=== PATIENT | male | born 1990 | race Caucasian/White ===

== ENCOUNTER 2017-07-03 12:29 | Emergency (ER) | payer SELFPAY ==
[2017-07-03 12:36] VITALS: BP 128/66
--- NOTE | 2017-07-03 13:08 | RAD ---
Indication: Right thumb injury. 3 views of the right thumb demonstrates no fracture. Early degenerative changes of the first metacarpal phalangeal joint is noted. IMPRESSION: No fracture is identified. Degenerative changes of the first metacarpal phalangeal joint.
--- NOTE | 2017-07-24 16:39 | ED ---
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 He states he has injured this thumb before and feels that he may have hyperextended it. Denies any numbness or tingling in the thumb, but endorses some ecchymosis over the MCP joint. Full range of motion, but with pain. Pain is worse with abduction. Denies any pain in the wrist or the fingertips. He also notes to a left groin strain. Pain is not worse on palpation, but is worse with specific movements. He denies any history of hernias or other strains of the groin. Denies any difficulty with urination or other complaints at this time. Patient is otherwise healthy and takes no medications. He has not been using [id number] medications or ice for relief. - History of Current Complaint Chief Complaint: EDExtremityUpper Stated Complaint: RIGHT THUMB PAIN Time Seen by Provider: 07/03/17 12:37 Hx Obtained From: Patient Mechanism Of Injury: Twisted Onset/Duration: Started Days Ago Timing: Constant Severity Initially: Moderate Severity Currently: Moderate Pain Location: Other: - Right thumb and left groin Aggravating Factor(s): Movement, Internal/External Rotation Alleviating Factor(s): Rest, Ice Associated Signs & Symptoms: Positive: Bruising - Right MCP joint, but with full range of motion. Negative: Swelling, Redness Related History: Occupational Injury, Dominant Hand Right - Risk Factors Non-Orthopedic Risk Factor: Negative DVT Risk Factors: Negative Septic Arthritis Risk Factor: Negative Compartment Syndrome Risk Factors: Pain - Allergies/Home Medications Allergies/Adverse Reactions: Allergies Allergy/AdvReac Type Severity Reaction Status Date / Time No Known Allergies Allergy Verified 11/06/14 18:58 PMH/Surg Hx/FS Hx/Imm Hx Previously Healthy: Yes Endocrine/Hematology History: Denies: Hx Diabetes, Hx Thyroid Disease Cardiovascular History: Denies: Hx Hypertension Respiratory History: Denies: Hx Asthma, Hx Chronic Obstructive Pulmonary Disease (COPD) GI History: Denies: Hx Ulcer - Immunization History Hx Pertussis Vaccination: No Immunizations Up to Date: Unable to Obtain/Confirm Infectious Disease History: No Infectious Disease History: Denies: Hx Clostridium Difficile, Hx Hepatitis, Hx Human Immunodeficiency Virus (HIV), Hx of Known/Suspected MRSA, Hx Shingles, Hx Tuberculosis, Hx Known/ Suspected VRE, Hx Known/Suspected VRSA, History Other Infectious Disease, Traveled Outside the [place] in Last 30 Days - Social History Occupation: Employed Full-time Lives: With Family Alcohol Use: Occasionally Alcohol Amount: few drinks Hx Substance Use: Yes Substance Use Type: Reports: Marijuana Hx Tobacco Use: No Smoking Status (MU): Never Smoked Tobacco Type: Cigarettes Review of Systems Constitutional: Negative Negative: Fever, Chills, Fatigue, Skin Diaphoresis ENT: Negative Respiratory: Negative Negative: Shortness Of Breath, Cough Negative: Abdominal Pain, Vomiting, Diarrhea, Nausea Genitourinary: Negative Positive: no symptoms reported, see HPI Positive: Myalgia - right thumb and left groin pain Skin: Negative All Other Systems Reviewed And Are Negative: Yes Physical Exam Triage Information Reviewed: Yes Vital Signs On Initial Exam: Initial Vitals Temp Pulse Resp BP Pulse Ox 97.7 F 75 18 128/66 99 07/03/17 12:31 18 12:31 07/03/17 12:31 07/03/17 12:31 07/03/17 12:31 Vital Signs Reviewed: Yes Appearance: Positive: Well-Appearing, Well-Nourished Skin: Positive: Warm, Skin Color Reflects Adequate Perfusion, Other - Ecchymosis to the MCP joint of the right thumb Head/Face: Positive: Normal Head/Face Inspection Eyes: Positive: EOMI, BERENICE, Conjunctiva Clear Neck: Positive: Supple, Nontender, No Lymphadenopathy Respiratory/Lung Sounds: Positive: Clear to Auscultation, Breath Sounds Present Cardiovascular: Positive: RRR, Pulses are Symmetrical in both Upper and Lower Extremities Musculoskeletal: Positive: Pain @ - Left groin pain not worse with deep palpation and without palpable nodule or hernia Neurological: Positive: Sensory/Motor Intact, Alert, Oriented to Person Place, Time Psychiatric: Positive: Affect/Mood Appropriate AVPU Assessment: Alert Diagnostics - Vital Signs Vital Signs Temp Pulse Resp BP Pulse Ox 07/03/17 12:31 97.7 F 75 18 128/66 99 - Laboratory Lab Statement: Any lab studies that have been ordered have been reviewed, and results considered in the medical decision making process. 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 He also notes to left groin pain which has been present for 2 weeks. There is no palpable nodule, discoloration or hernia present. He is to follow-up with physical therapy or his PCP for further evaluation. X-ray of the right thumb obtained and negative for any fractures, but shows degenerative disc disease. He is instructed to apply moist heat to the area. He is also instructed to apply ice to the thumb and continue range of motion of the thumb to prevent stiffness. Encouraged ibuprofen 600 mg 3 times daily. Patient wishes no concerns at this time and is okay for discharge. - Diagnoses Provider Diagnoses: Pain of right thumb Discharge - Discharge Plan Condition: Stable Disposition: HOME Patient Education Materials: Groin Strain (ED) Forms: *Work Release Referrals: Carlos Yip MD [Medical Doctor] - 3 Days No Primary Care Phys,NOPCP [Primary Care Provider] - Additional Instructions: Please follow up with Dr. Yip next week I have taken you out of work for 3 days Moist heat to the area of the groin Ice to the thumb Ibuprofen 600mg three times daily for pain
== END 2017-07-03 14:38 | disposition home or self-care (01) ==
LOC: ED 12:29
DX: M79.644 Pain in right finger(s) (principal)
CPT/HCPCS: 99281

== ENCOUNTER 2018-06-27 18:16 | Emergency (ER) | payer OTHER ==
--- NOTE | 2018-06-27 18:35 | ED ---
Substance Abuse/Use - HPI Summary HPI Summary: Patient is a 28 y/o M presenting to ED with law enforcement for legal blood draw. Patient states that he was pulled over, officer reported that the patient' s vehicle smelled of marijuana. He states that a marijuana stem was found in his car. Roadside tests were administered, patient was told that he appeared impaired and that examination of his septum suggested cocaine usage. Patient was subsequently brought to ED for legal blood draw. In the room, he has no medical complaints other than feeling "a bit anxious". Patient notes that he smoked marijuana last night. He reports PMHx of spinal stenosis. He states that he is not on any home medications, no allergies reported. No PSHx, he denies PMHx of HTN, asthma, diabetes, thyroid problems. FMHx of CA is reported. On triage, pain is denied, nothing is noted to aggravate/alleviate Sx. Home medications and allergies are reviewed. - History Of Current Complaint Chief Complaint: EDGeneral Stated Complaint: LEGAL BLOOD DRAW Hx Obtained From: Patient Onset/Duration of Drug/ETOH Abuse: Days - last night Ingestion History: Type/Name Of Drug - marijuana Overdose Characteristics: Inhalation - marijuana Severity Currently: None - no pain reported Character: Anxious Aggravating Factor(s): Nothing Alleviating Factor(s): Nothing Associated Signs And Symptoms: Negative - Allergies/Home Medications Allergies/Adverse Reactions: Allergies Allergy/AdvReac Type Severity Reaction Status Date / Time No Known Allergies Allergy Verified 11/06/14 18:58 PMH/Surg Hx/FS Hx/Imm Hx Endocrine/Hematology History: Denies: Hx Diabetes, Hx Thyroid Disease Cardiovascular History: Denies: Hx Hypertension Respiratory History: Denies: Hx Asthma, Hx Chronic Obstructive Pulmonary Disease (COPD) GI History: Denies: Hx Ulcer - Surgical History Surgery Procedure, Year, and Place: none Infectious Disease History: No Infectious Disease History: Denies: Hx Clostridium Difficile, Hx Hepatitis, Hx Human Immunodeficiency Virus (HIV), Hx of Known/Suspected MRSA, Hx Shingles, Hx Tuberculosis, Hx Known/ Suspected VRE, Hx Known/Suspected VRSA, History Other Infectious Disease, Traveled Outside the [place] in Last 30 Days - Family History Known Family History: Positive: Other - FMHx of [place] - Social History Alcohol Use: Occasionally Alcohol Amount: few drinks Substance Use Type: Reports: Marijuana Smoking Status (MU): Never Smoked Tobacco Type: Cigarettes Review of Systems Positive: Other - LEGAL BLOOD DRAW. Negative: Fever Positive: Anxious All Other Systems Reviewed And Are Negative: Yes Physical Exam - Summary Physical Exam Summary: Appearance: Well-appearing, no pain distress, well-nourished; patient is calm, cooperative, but states he is anxious Skin: Warm, color reflects adequate perfusion, dry Head: Normal Head/Face inspection, atraumatic Eyes: Conjunctiva clear, pupils are 3 mm equal and reactive, EOMI ENT: nose is erythematous, turbinates bilaterally, small area of white mucus and dried blood at right septum. No hematoma or ulcer of septum. Neck: Supple, no nodes, no JVD Respiratory: Lungs clear, normal breath sounds, no respiratory distress Cardio: RRR, No murmur, pulses normal, brisk capillary refill Abdomen: Soft, nontender Bowel sounds: Present Musculoskeletal: Strength Intact/ROM intact, no calf tenderness, no edema. Psychological: Normal Neuro: Alert, muscle tone normal, no focal deficit Triage Information Reviewed: Yes Vital Signs On Initial Exam: Initial Vitals Temp Pulse Resp BP Pulse Ox 98.6 F 89 18 157/76 99 06/27/18 18:23 06/27/18 18:23 06/27/18 18:23 06/27/18 18:23 06/27/18 18:23 Vital Signs Reviewed: Yes Diagnostics - Vital Signs Vital Signs Temp Pulse Resp BP Pulse Ox 06/27/18 18:23 98.6 F 89 18 157/76 99 - Laboratory Lab Statement: Any lab studies that have been ordered have been reviewed, and results considered in the medical decision making process. Course/Dx - Course Course Of Treatment: Patient is a 28 y/o M presenting to ED with law enforcement for legal blood draw. Patient states that he was pulled over, officer reported that the patient's vehicle smelled of marijuana. He states that a marijuana stem was found in his car. Roadside tests were administered, patient was told that he appeared impaired and that examination of his septum suggested cocaine usage. Patient was subsequently brought to ED for legal blood draw. In the room, he has no medical complaints other than feeling "a bit anxious". Patient notes that he smoked marijuana last night. He reports PMHx of spinal stenosis. He states that he is not on any home medications, no allergies reported. No PSHx, he denies PMHx of HTN, asthma, diabetes, thyroid problems. FMHx of CA is reported. On physical exam, patient is well-appearing, no pain distress, well-nourished; patient is calm, cooperative, but states he is anxious. Conjunctiva clear, pupils are 3 mm equal and reactive, EOMI. Nose is erythematous, turbinates bilaterally, small area of white mucus and dried blood at right septum. No hematoma or ulcer of septum. Blood sample was obtained from patient, he was discharged afterwards. - Diagnoses Provider Diagnoses: Encounter for blood test Discharge - Sign-Out/Discharge Documenting (check all that apply): Patient Departure - discharge - Discharge Plan Condition: Stable Disposition: HOME Patient Education Materials: Normal Exam (ED) Referrals: [facility] [Outside] - If Needed [facility]FERRAL [Outside] - If Needed Additional Instructions: Return to the ER if any new or worsening symptoms. - Attestation Statements Document Initiated by Scribe: Yes Documenting Scribe: DANIELLE COSTA Provider For Whom Scribe is Documenting (Include Credential): JACKLYN PAREKH MD Scribe Attestation: DANIELLE Small , scribed for JACKLYN PAREKH MD on 06/27/18 at 1919. Status of Scribe Document: Ready
[2018-06-27 19:03] VITALS: BP 00/00
== END 2018-06-27 19:02 | disposition home or self-care (01) ==
LOC: ED 18:16
DX: Z04.89 Encounter for examination and observation for other specified reasons (principal); F41.9 Anxiety disorder, unspecified
CPT/HCPCS: 99282

== ENCOUNTER 2018-07-22 09:09 | Emergency (ER) | payer OTHER ==
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
[2018-07-22 10:49] VITALS: BP 130/79
== END 2018-07-22 10:48 | disposition home or self-care (01) ==
LOC: ED 09:09
DX: S43.401A Unspecified sprain of right shoulder joint, initial encounter (principal); X58.XXXA Exposure to other specified factors, initial encounter; Y92.159 Unspecified place in reform school as the place of occurrence of the external cause; Y99.0 Civilian activity done for income or pay
CPT/HCPCS: 99282

== ENCOUNTER 2019-04-02 18:17 | Emergency (ER) | payer BC ==
[2019-04-02 18:39] VITALS: BP 123/79
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
== END 2019-04-02 19:37 | disposition home or self-care (01) ==
LOC: UCEAST 18:17
DX: S06.0X0A Concussion without loss of consciousness, initial encounter (principal); S00.33XA Contusion of nose, initial encounter; W50.0XXA Accidental hit or strike by another person, initial encounter; Y93.67 Activity, basketball; Y92.9 Unspecified place or not applicable
CPT/HCPCS: 70160; 99211; G0463

== ENCOUNTER 2019-09-20 14:39 | Emergency (ER) | payer BC, OTHER ==
--- NOTE | 2019-09-20 15:01 | UC ---
Eye Complaint HPI - HPI Summary HPI Summary: 29 yo with 3 day history of crusting eye discharge, awakening with lightly colored eye matter. No visual change or photophobia associated. No allergy symptoms, but his workplace has been disinfecting regularly and he wonders about irritation secondary to cleaning products. His mom recently tested negative for COVID. - History of Current Complaint Chief Complaint: UCEye Stated Complaint: EYE ISSUE Time Seen by Provider: 09/20/19 14:48 Hx Obtained From: Patient Onset/Duration: Gradual Onset, Lasting Days Timing: Constant Severity Initially: Mild Severity Currently: Mild Pain Intensity: 0 Location of Injury: Conjunctiva Aggravating Factor(s): Nothing Alleviating Factor(s): Other - compressing helps a little. Associated Signs And Symptoms: Positive: Drainage (Purulent) - Risk Factors Penetrating Injury Risk Factor: Negative Globe Rupture Risk Factors: Negative Acute Glaucoma Risk Factors: Negative Optic Artery Occlusion Risk Factors: Negative - Allergies/Home Medications Allergies/Adverse Reactions: Allergies Allergy/AdvReac Type Severity Reaction Status Date / Time No Known Allergies Allergy Verified 09/20/19 14:49 Home Medications: Home Medications Polymyx/Trimethoprim OPTH* [Polytrim OPHTH*] 1 drop BOTH EYES Q3H #1 btl [Rx] PMH/Surg Hx/FS Hx/Imm Hx Previously Healthy: Yes - Surgical History Surgical History: None Surgery Procedure, Year, and Place: none - Family History Known Family History: Positive: Respiratory Disease - mother has COPD - Social History Lives: With Family Alcohol Use: Occasionally Alcohol Amount: few drinks Substance Use Type: None Smoking Status (MU): Never Smoked Tobacco Type: Cigarettes Review of Systems All Other Systems Reviewed And Are Negative: Yes Constitutional: Positive: Negative Skin: Positive: Negative Eyes: Positive: Drainage, Eye Redness. Negative: Blurred Vision, Diplopia, Photophobia ENT: Positive: Negative Respiratory: Positive: Negative Cardiovascular: Positive: Negative Gastrointestinal: Positive: Negative Genitourinary: Positive: Negative Motor: Positive: Negative Neurovascular: Positive: Negative Musculoskeletal: Positive: Negative Neurological/Mental Status: Positive: Negative Psychological: Positive: Negative Physical Exam Triage Information Reviewed: Yes Appearance: Well-Appearing, No Pain Distress Eye Exam: Normal Eyes: Positive: Conjunctiva Inflamed, Other: - EVON, normal eom. ENT: Positive: Pharynx normal Dental Exam: Normal Neck exam: Normal Respiratory: Positive: Lungs clear, Normal breath sounds Cardiovascular: Positive: RRR, No Murmur Musculoskeletal Exam: Normal Neurological Exam: Normal Psychological Exam: Normal Skin Exam: Normal Eye Complaint Course/Dx - Course Course Of Treatment: antibiotic drops for suspected conjunctivitis. Reviewed approach to eye irritants. - Differential Dx/Diagnosis Differential Diagnosis/HQI/PQRI: Conjunctivitis Provider Diagnosis: Conjunctivitis Discharge ED - Sign-Out/Discharge Documenting (check all that apply): Patient Departure All imaging exams completed and their final reports reviewed: No Studies - Discharge Plan Condition: Stable Disposition: HOME Prescriptions: Polymyx/Trimethoprim OPTH* [Polytrim OPHTH*] 1 drop BOTH EYES Q3H #1 btl Patient Education Materials: Conjunctivitis (ED) Referrals: Carlos Yip MD [Primary Care Provider] - Kiel Adrian MD [Medical Doctor] - Additional Instructions: Continue compressing your eyes with warm moist compresses, especially at the end of the work day. Use antibiotic eye drops for suspected infectious conjunctivitis. Due to the possible chemical irritation caused by cleaning products, if you are not seeing a response in 2 to 3 days, I suggest a trial of ketorolac eye drops 2 drops to both eyes twice daily for relief of irritation. If you are having continued problems, I have added a referral to opthalmology for you to initiate. - Billing Disposition and Condition Condition: STABLE Disposition: Home
[2019-09-20 15:06] VITALS: BP 140/64
== END 2019-09-20 15:30 | disposition home or self-care (01) ==
LOC: UCEAST 14:39
DX: H10.33 Unspecified acute conjunctivitis, bilateral (principal)
CPT/HCPCS: 99212; G0463

== ENCOUNTER 2023-02-11 06:01 | Observation (INO) ==
[~2023-02-11 06:01] MED LIST: Buffered Lidocaine 1% SYRIN 1 ml INTRADERM ONE; Famotidine IV 10 MG/ML 2 ml VIAL (20 mg) IV ONE; Lactated Ringers 1000 ml BAG 1,000 ML IV SCH
[2023-02-11] MEDS ORDERED: Chlorhexidine MOUTHWASH 0.12% 15 ML UDC ONE (06:08)
[2023-02-11] MEDS ORDERED: fentaNYL 100 mcg/2 ml 50 MCG/ML VIAL ONE (06:36)
[2023-02-11] MEDS ORDERED: Rocuronium 50 mg VIAL 10 mg/ml 5 ml VIAL (50 mg) ONE (06:36)
[2023-02-11] MEDS ORDERED: Midazolam 2 mg/2 ml VIAL 1 mg/ml 2 ml VIAL (2 mg) ONE (06:36)
[2023-02-11] MEDS ORDERED: Propofol 10 MG/ML 20 ML BTL ONE (06:36)
[2023-02-11] MEDS ORDERED: Lidocaine 2% PF 5 ML VIAL ONE (06:36)
[2023-02-11] MEDS ORDERED: ceFAZolin 2 GM PREMIX 2 GM/50 ML BAG ONE (06:41)
[2023-02-11] MEDS ORDERED: Famotidine IV 10 MG/ML 2 ml VIAL (20 mg) ONE (06:59)
[2023-02-11] MEDS ORDERED: Lidocaine 1% w EPI 1:100,000 MDV 20 ML VIAL ONE (07:02)
[2023-02-11] MEDS ORDERED: Gelfoam Sponge SIZE 100 SPONGE ONE (07:02)
[2023-02-11] MEDS ORDERED: Thrombin 5,000 UNITS 1 APPLIC KIT - topical use - TOPICAL ONE (07:02)
[2023-02-11] MEDS ORDERED: ceFAZolin VIAL VIAL ONE (07:02)
[2023-02-11] MEDS ORDERED: Ondansetron 4 mg VIAL 2 MG/ML 2 ml VIAL ONE (07:58)
[2023-02-11] MEDS ORDERED: Acetaminophen IV 1 GM/100ML 1,000 MG/100 ML BAG IV ONE (07:58)
[2023-02-11] MEDS ORDERED: Naloxone 0.4 mg VIAL 0.4 mg/ml 1 ml VIAL IV PRN (08:11)
[2023-02-11] MEDS ORDERED: fentaNYL 100 mcg/2 ml 50 MCG/ML VIAL IV PRN (08:11)
[2023-02-11] MEDS ORDERED: Ondansetron 4 mg VIAL 2 MG/ML 2 ml VIAL IV PRN ×2 (08:11→09:51)
[2023-02-11] MEDS ORDERED: Dexmedetomidine 200 mcg/2 ml 2 ml VIAL (200 mcg) ONE (08:45)
[2023-02-11] MEDS ORDERED: Glycopyrrolate IV 0.2 MG/ML 1 ML VIAL ONE (08:46)
[2023-02-11] MEDS ORDERED: Senna TAB 8.6 mg TAB PO PRN (09:51)
[2023-02-11] MEDS ORDERED: HYDROcodone/ACETAMIN 5/325 mg TAB PO PRN (09:51)
[2023-02-11] MEDS ORDERED: Calcium Carb (TUMS) 500 mg CHEW TAB PO PRN (09:51)
[2023-02-11] MEDS ORDERED: Morphine 2 MG/ML SYRINGE IV PRN (09:51)
[2023-02-11] MEDS ORDERED: Lactated Ringers 1000 ml BAG 1,000 ML IV SCH (10:00)
[2023-02-11] MEDS ORDERED: HYDROmorphone 1 MG/1 ML SYRINGE ONE (10:26)
[2023-02-11] MEDS: HYDROmorphone 1 MG/1 ML SYRINGE IV PRN ×3 (10:29→10:50)
[2023-02-11] MEDS: HYDROcodone/ACETAMIN 5/325 mg TAB PO PRN ×3 (13:54→23:00)
[2023-02-12] MEDS: HYDROcodone/ACETAMIN 5/325 mg TAB PO PRN ×2 (03:46→07:38)
[2023-02-12 06:26] VITALS: BP 130/65
== END 2023-02-12 10:00 | disposition home or self-care (01) ==
LOC: OR 06:01 → SSU 06:01
PROVIDERS: ADMIT Neurological Surgery; ATTEND Neurological Surgery